=== PATIENT | male | born 2000 | race African-American/Black ===

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

== ENCOUNTER 2019-08-26 10:01 | Emergency (ER) | payer MEDICAID ==
[~2019-08-26] VITALS: Ht 182.9 cm; Wt 68.0 kg
[2019-08-26 10:11] VITALS: BP 118/57
[2019-08-26] MEDS ORDERED: TETANUS, DIPHTHERIA, PERTUSSIS VAC/PF 0.5ML (>7YR OLD) IM ONE (10:45)
== END 2019-08-26 10:58 | disposition home or self-care (01) ==
LOC: ER 10:01
DX: S61.211A Laceration without foreign body of left index finger without damage to nail, initial encounter (principal); X58.XXXA Exposure to other specified factors, initial encounter; Y93.89 Activity, other specified; Y92.89 Other specified places as the place of occurrence of the external cause; Y99.8 Other external cause status
CPT/HCPCS: 90471; 90715; 99283